=== PATIENT | male | born 1965 | race Two or more races ===

== ENCOUNTER 2017-01-30 07:01 | Day surgery (SDC) | payer OTHER ==
[~2017-01-30] VITALS: Ht 172.7 cm; Wt 83.7 kg
[~2017-01-30 07:01] MED LIST: ATOR20TA17 PO; BENA1TAB3 PO; CHOL2000 PO; MTF1000T PO; OMEP20CA16 PO; RANI150T5 PO
[2017-01-30 07:57] VITALS: Ht 172.7 cm; Wt 83.7 kg
[2017-01-30] MEDS ORDERED: DICYCLOMINE (08:06)
[2017-01-30] MEDS ORDERED: SIMV40TA2 PO (08:06)
[2017-01-30] MEDS ORDERED: SITA1TAB PO (08:06)
[2017-01-30] MEDS ORDERED: GABA300C16 PO (08:06)
[2017-01-30] MEDS ORDERED: ZOLP5TAB7 PO (08:06)
[2017-01-30 08:51] VITALS: BP 123/70; PULSE 70
[2017-01-30 10:03] VITALS: BP 104/64; RESP 20
--- NOTE | 2017-01-30 10:25 | GILP ---
DATE OF PROCEDURE: NAME OF PROCEDURE: Colonoscopy. SURGEON: Esdras Frye MD PREOPERATIVE DIAGNOSES: 1. Rectal bleeding. 2. History of colon cancer. 3. Abnormal PET scan. POSTOPERATIVE DIAGNOSES 1. Colonoscopy all the way to the cecum. 2. Internal hemorrhoids. 3. No colon neoplasm was identified. INDICATION FOR THE PROCEDURE: Mr. Pietro Davis is a 51-year-old male patient who had rectal bleedi ng. He had history of colon cancer. The patient underwent PET scan and he was noted to have abnorm al activity in the rectum. The patient was scheduled for colonoscopy for further evaluation. The procedure and possible complications are well explained to the patient, he understood and consen alison to the procedure. DESCRIPTION OF PROCEDURE: Under the influence of fentanyl and Versed, the colonoscope was carefully introduced in the rectum and under direct vision, it was advanced all the way to the cecum. FINDINGS: The patient had internal hemorrhoids. No colitis or neoplasm was identified. He tolerated the procedure very well and there was no complication from the procedure. At the end o f the procedure, he was awake with stable vital signs and he was discharged home to the care of his family. IMPRESSION: 1. Colonoscopy all the way to the cecum. 2. Internal hemorrhoids. 3. No colon neoplasm was identified. PLAN: Anusol-HC 2.5% cream b.i.d. p.r.n. Dictated By: ESDRAS VERA/JW Conf#: [id number] DID#: [id number] CC: ENRIKE STERLING MD;*EndCC*
[2017-01-30] MEDS ORDERED: FENTAnyl 50 MCG/ML VIAL ONE (10:34)
[2017-01-30] MEDS ORDERED: MIDAZOLAM 1 MG/ML 2 ML INJ ONE ×2 (10:34)
== END 2017-01-30 15:06 | disposition home or self-care (01) ==
LOC: GIL 07:01
PROVIDERS: ATTEND Internal Medicine Gastroenterology
DX: K64.8 Other hemorrhoids (principal); E11.9 Type 2 diabetes mellitus without complications; I10 Essential (primary) hypertension
CPT/HCPCS: 45378; 82962; J2250; J3010; Z7610

== ENCOUNTER 2017-10-27 10:49 | Day surgery (SDC) | END 2017-10-27 16:57 | disposition home or self-care (01) ==

== ENCOUNTER 2017-11-03 02:10 | Observation (INO) | END 2017-11-04 13:10 | disposition home or self-care (01) ==